=== PATIENT | male | born 1935 | race Caucasian/White ===

== ENCOUNTER → 2023-01-11 13:54 | Outpatient (BNVA) | payer MEDICARE, SELFPAY | PROVIDERS: Family Provider Family Medicine; Visit Provider Nurse Practitioner Family | DX: L57.0 Actinic keratosis (principal); L57.8 Other skin changes due to chronic exposure to nonionizing radiation; L85.3 Xerosis cutis; L81.4 Other melanin hyperpigmentation; D22.5 Melanocytic nevi of trunk; L82.1 Other seborrheic keratosis; Z71.89 Other specified counseling; Z85.828 Personal history of other malignant neoplasm of skin; Z87.891 Personal history of nicotine dependence | CPT/HCPCS: 17000; 17003; 99213 ==

== ENCOUNTER 2023-07-03 15:25 | Emergency (ER) | payer MEDICARE, SELFPAY ==
--- NOTE | 2023-07-03 15:36 | CTR_ITS ---
PROCEDURE INFORMATION: Exam: CT Cervical Spine Without Contrast Exam date and time: 07/03/2023 4:01 PM Age: 88 years old Clinical indication: Injury or trauma; Fall; Blunt trauma TECHNIQUE: Imaging protocol: Computed tomography of the cervical spine without contrast. Radiation optimization: All CT scans at this facility use at least one of these dose optimization techniques: automated exposure control; mA and/or kV adjustment per patient size (includes targeted exams where dose is matched to clinical indication); or iterative reconstruction. REPORTING DATA: Count of CT and Cardiac NM exams in prior 12 months: This patient has received 0 known CTs and 0 known cardiac nuclear medicine studies in the 12 months prior to the current study. COMPARISON: CT head wo con* [id number] 07/03/2023 4:01 PM RADIATION DOSE METRICS: Total DLP (mGy-cm): 262 FINDINGS: Bones/joints: No acute fracture. Normal alignment. No significant disc bulge or herniation. No severe spinal canal stenosis. No significant neural foraminal narrowing. Lungs: Lung apices are normal. Soft tissues: Unremarkable. CT/CT cervical spin wo con* [id number] IMPRESSION: No acute findings.
--- NOTE | 2023-07-03 15:36 | CTR_ITS ---
PROCEDURE INFORMATION: Exam: CT Head Without Contrast Exam date and time: 07/03/2023 4:01 PM Age: 88 years old Clinical indication: Injury or trauma; Fall; Blunt trauma (contusions or hematomas) TECHNIQUE: Imaging protocol: Computed tomography of the head without contrast. Radiation optimization: All CT scans at this facility use at least one of these dose optimization techniques: automated exposure control; mA and/or kV adjustment per patient size (includes targeted exams where dose is matched to clinical indication); or iterative reconstruction. REPORTING DATA: Count of CT and Cardiac NM exams in prior 12 months: This patient has received 0 known CTs and 0 known cardiac nuclear medicine studies in the 12 months prior to the current study. COMPARISON: CT cervical spin wo con* [id number] 07/03/2023 4:01 PM RADIATION DOSE METRICS: Total DLP (mGy-cm): 1188 FINDINGS: Brain: There is an intra-axial mass centered in the right frontal lobe extending across the midline into the left frontal lobe measuring 5.4 x 4.9 x 4.8 cm with surrounding vasogenic edema. This is causing mass effect and indentation of the frontal horns of the lateral ventricles. There is also 6 mm of [id number]-piap midline shift. No hemorrhage. Cerebral ventricles: No ventriculomegaly. Paranasal sinuses: Fluid-filled left maxillary sinus. Mastoid air cells: Visualized mastoid air cells are well aerated. Bones/joints: Unremarkable. No acute fracture. Soft tissues: Unremarkable. 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 If not previously diagnosed, a pre and post-contrast MRI of the brain is recommended for further evaluation.
[2023-07-03 15:40] VITALS: BMI 37.1
[2023-07-03 15:42] VITALS: BP 137/67; PULSE 59; RESP 16; TEMP 36.3; O2SAT 96
--- NOTE | 2023-07-03 16:18 | W.ED.HEATRA ---
HPI - Head Injury General: Chief complaint: Head Injury Stated complaint: Fell, Hit head, neck pain Time Seen by Provider: 07/03/23 16:18 Source: patient Mode of arrival: ambulatory History of Present Illness: 88-year-old male presents emergency room after a fall he stumbled mechanical ground-level fall at home. He did hit the right side of his head in the temporal region has a small abrasion there there is no loss conscious no nausea or vomiting. He has a history of hypertension remote history of prostate cancer was resected in 2001. He recently seen his primary care physician was thought to have a TIA. He is not on any kind of anticoagulants. He has not had any ataxia difficulty walking no visual or speech changes no nausea or vomiting. He generally has been a little bit more unsteady on his feet the last few weeks he had blamed that on the TIA he has been walking with a cane for some time feels little bit more reliant on it recently. He also noticed a little bit of difficulty with incontinence of urine recently. No hematuria MD Complaint: head injury Onset (ago): minute(s) Mechanism of Injury: fall Place: home Loss of Consciousness: no Location of injury: parietal Severity: mild Quality: aching Radiation: none Other Injuries: none Associated symptoms: Deny amnesia, confusion, nausea, neck pain, numbness, syncope, tingling, vertigo, visual changes, vomiting or weakness Review of Systems Const: Denies: fever(s) or chills Card: Denies: syncope Resp: Denies: dyspnea GI: Denies: nausea or vomiting : Denies: dysuria, urinary frequency or urinary urgency Musc: Denies: neck pain Skin/Breast: Denies: rash Neuro: Denies: vertigo or confusion PFSH ED PFSH: Medical History Degenerative arthritis of right knee HTN (hypertension) Social History Alcohol intake: never Substance/Drug Use: never Physical Exam Const: COMMON NORMALS: no acute distress GENERAL APPEARANCE: cooperative and comfortable ORIENTATION/CONSCIOUSNESS: Yes awake, Yes oriented to person, Yes oriented to place and Yes oriented to time HENMT: COMMON NORMALS: normocephalic, atraumatic and hearing grossly normal bilaterally HEAD & SCALP: normocephalic and atraumatic Resp: COMMON NORMALS: normal respiratory effort, No retractions, No use of accessory muscles and clear to auscultation bilaterally AUSCULTATION: clear to auscultation bilaterally Cardio: COMMON NORMALS: regular rate, regular rhythm and No murmurs present (Cardio) RATE: regular rate RHYTHM: regular rhythm GI: COMMON NORMALS: Soft to palpation and No hepatosplenomegaly present AUSCULTATION: Yes normoactive bowel sounds PALPATION: Yes Soft to palpation, No Tenderness to palpation present (GI), No Guarding due to palpation present (GI) and Yes No hepatosplenomegaly present Extremity: COMMON NORMALS: normal to inspection, capillary refill normal, no clubbing, cyanosis or edema, no calf tenderness and no pedal edema Neuro: SENSORIUM/ORIENTATION: Yes oriented to person, Yes oriented to place and Yes oriented to time Skin: COMMON NORMALS: no rashes or lesions noted GENERAL SKIN EXAM: no rashes or lesions noted Course Vital Signs: Vital signs: Vital Signs Temperature 97.4 F L 07/03/23 15:42 Pulse Rate 62 07/03/23 16:21 Respiratory Rate 18 07/03/23 16:21 Blood Pressure 158/77 07/03/23 16:21 Pulse Oximetry 92 07/03/23 16:21 Oxygen Delivery Me thod Room Air 07/03/23 16:21 MDM - Head Injury Medcial Decision Making Patient is a new finding of frontal mass which is likely causing his symptoms. We will start him on dexamethasone orally given initial dose here will discharge home set up outpatient MRI I did contact his primary care doctor to assist with managing follow-up on this. Medical Records I reviewed the patient's medical records. Lab Data I reviewed the patient's lab results. 07/03/23 16:27 07/03/23 16:27 Radiology Impressions Cervical Spine CT 07/03/23 15:36 IMPRESSION: No acute findings. Head CT 07/03/23 15:36 IMPRESSION: Aggressive appearing intra-axial mass centered within the right frontal lobe and crossing the midline into the left frontal lobe measuring 5.4 x 4.9 x 4.8 cm highly suspicious for high-grade glioma or lymphoma. If not previously diagnosed, a pre and post-contrast MRI of the brain is recommended for further evaluation. ADDENDUM: 07/03/23 1645 Findings were discussed with Dr. Alvarado at 07/03/2023 4:43 PM AIRCRAFT INSTRUMENT TESTER. Chest X-Ray 07/03/23 16:19 IMPRESSION: No acute findings. Laboratory Results WBC 10.91 10^3/uL (3.29-11.43) 07/03/23 16: RBC 4.47 10^6/uL (3.85-5.65) 07/03/23 16: Hgb 14.10 g/dL (11.27-16.99) 07/03/23 16: Hct 41.4 % (37-53) 07/03/23 16: MCV 92.6 fl (82-101) 07/03/23 16: MCH 31.5 pg (27-33) 07/03/23 16: MCHC 34.1 g/dL (30-55) 07/03/23 16: RDW 13.4 % (12.1-15.1) 07/03/23 16: Plt Count 235 10^3/cmm (157-399) 07/03/23 16: MPV 10.1 fL (7.4-10.4) 07/03/23 16: Neut % (Auto) 72.1 % 07/03/23 16: Lymph % (Auto) 14.7 % 07/03/23 16: [place] % (Auto) 12.3 % 07/03/23 16: Eos % (Auto) 0.3 % 07/03/23 16: Baso % (Auto) 0.2 % 07/03/23 16: Neut # (Auto) 7.88 10^3/uL (1.8-7.7) H 07/03/23 16:27 Lymph # (Auto) 1.6 10^3/uL (0.8-4.8) 07/03/23 16: [place] # (Auto) 1.3 10^3/uL (0.2-0.9) H 07/03/23 16:27 Eos # (Auto) 0.0 10^3/uL (0.0-0.8) 07/03/23 16: Baso # (Auto) 0.0 10^3/uL (0.0-0.1) 07/03/23 16:27 Nucleated RBC % (auto) 0 % 07/03/23 16:27 Nucleated RBCs # 0.0 /100WBC 07/03/23 16:27 Sodium 136 mmol/L (136-145) 07/03/23 16:27 Potassium 3.5 mmol/L (3.5-5.1) 07/03/23 16:27 Chloride 99 mmol/L (98-107) 07/03/23 16:27 Carbon Dioxide 24 mmol/L (22-29) 07/03/23 16:27 Anion Gap 16.5 (5-19) 07/03/23 16:27 BUN 27 mg/dL (8-23) H 07/03/23 16:27 Creatinine 0.9 mg/dL (0.7-1.2) 07/03/23 16:27 GFR Calculation Not Reportable 07/03/23 16:27 Glucose 110 mg/dL (65-115) 07/03/23 16:27 Calculated Osmolality 288 mOsm/kg (285-295) 07/03/23 16:27 Calcium 9.2 mg/dL (8.5-10.5) 07/03/23 16:27 Total Bilirubin 0.6 mg/dL (0.15-1.2) 07/03/23 16:27 AST 21 U/L (0-40) 07/03/23 16:27 ALT 13 U/L (0-41) 07/03/23 16:27 Alkaline Phosphatase 69 U/L (40-130) 07/03/23 16:27 Total Protein 6.9 g/dL (6.6-8.7) 07/03/23 16:27 Albumin 4.2 g/dL (3.5-5.2) 07/03/23 16:27 Globulin 2.7 g/dL (1.3-4.6) 07/03/23 16:27 All radiology interpretation(s) finalized by discharge Discharge Plan Discharge Patient Disposition: Home Clinical Impression: Frontal mass of brain Condition: Stable Prescriptions: New dexamethasone 4 mg tablet 4 mg PO TID Qty: 90 0RF No Action losartan 50 mg tablet 50 mg PO QDAY amlodipine 10 mg tablet 10 mg PO QDAY Discharge Orders: Discharge ED (Routine); Ordered 07/03/23 Ordered By: Nimesh Alvarado Referrals: Wilber Reeves, [Primary Care Provider] - Discharge Diet: Usual diet Discharge Activity: Resume usual activity Patient Instructions: Opioid Safety, Pain Management Activity Restrictions/Additional Instructions: Thank you for choosing [facility] for your healthcare needs today. Please realize this is an emergency room and that we are providing you with a medical screening exam and this may not be complete and all inclusive of all the testing and or work up that you may need to determine your ailment or severity of your illness. It is very important that you follow up as instructed or that you return to the Emergency Department should you have concerns or if your condition changes or worsens in any way. CT in your head done today showed a frontal brain mass. This will need further evaluation with an MRI. We will set this up for you on an outpatient basis Case management will contact you. After the MRI is completed follow-up with Dr. Reeves for further referral for more work-up and definitive treatment. Coding Level of Care Code ED Icer Machine Operator for Mitch Herman
--- NOTE | 2023-07-03 16:19 | XRR_ITS ---
PROCEDURE INFORMATION: Exam: XR Chest Exam date and time: 07/03/2023 4:43 PM Age: 88 years old Clinical indication: Injury or trauma; Fall; Blunt trauma (contusions or hematomas); Additional info: Dyspnea/cough TECHNIQUE: Imaging protocol: Radiologic exam of the chest. Views: 1 view. COMPARISON: CR XR chest 2V* [id number] 07/26/2018 12:43 PM FINDINGS: Lungs: Calcified granuloma noted in the right upper lung. Linear areas of scarring noted in the right mid lung. No consolidation. Pleural spaces: Unremarkable. No pleural effusion. No pneumothorax. Heart/Mediastinum: Unremarkable. No cardiomegaly. Bones/joints: Unremarkable. XR/XR chest 1V portable [id number] IMPRESSION: No acute findings.
[2023-07-03 16:21] VITALS: BP 158/77; PULSE 62; RESP 18; O2SAT 92
--- NOTE | 2023-07-03 16:32 | ECG_ITS ---
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 Measurements Intervals [place] Rate: 56 P: 56 OR: 173 QRS: 14 QRSD: 141 T: 29 QT: 342 QTc: 332 Interpretive Statements SINUS BRADYCARDIA RIGHT BUNDLE BRANCH BLOCK [120+ ms QRS DURATION, UPRIGHT V1, 40+ ms S IN I/aVL/V4/V5/V6] Compared to ECG 07/26/2018 11:50:04 Right bundle-branch block now present Electronically Signed On 07-05-2023 13:29:41 BRACE MAKER by Siddharth Salas M.D. [id number]
[2023-07-03 16:41] LABS: Basophils % 0.2 %; Eosinophils % 0.3 %; Hematocrit 41.4 % (37-53); Lymphocytes # 1.6 10^3/uL (0.8-4.8); Lymphocytes % 14.7 %; Mean Corpuscular HGB Conc 34.1 g/dL (30-55); Mean Corpuscular Hemoglobin 31.5 pg (27-33); Mean Corpuscular Volume 92.6 fl (82-101); Mean Platelet Volume 10.1 fL (7.4-10.4); Monocytes # 1.3 10^3/uL (0.2-0.9); Monocytes % 12.3 %; Neutrophils # 7.88 10^3/uL (1.8-7.7); Neutrophils % 72.1 %; Nucleated Red Blood Cells % 0 %; Platelet Count 235 10^3/cmm (157-399); Red Blood Count 4.47 10^6/uL (3.85-5.65); Red Cell Distribution Width 13.4 % (12.1-15.1); White Blood Count 10.91 10^3/uL (3.29-11.43)
[2023-07-03 16:51] LABS: Alanine Aminotransferase 13 U/L (0-41); Albumin Level 4.2 g/dL (3.5-5.2); Alkaline Phosphatase 69 U/L (40-130); Anion Gap 16.5 (5-19); Aspartate Amino Transferase 21 U/L (0-40); Blood Urea Nitrogen 27 mg/dL (8-23); Calcium 9.2 mg/dL (8.5-10.5); Carbon Dioxide 24 mmol/L (22-29); Chloride 99 mmol/L (98-107); Globulin 2.7 g/dL (1.3-4.6); Glucose 110 mg/dL (65-115); Osmolality Calculated 288 mOsm/kg (285-295); Potassium 3.5 mmol/L (3.5-5.1); Sodium 136 mmol/L (136-145); Total Bilirubin 0.6 mg/dL (0.15-1.2); Total Protein 6.9 g/dL (6.6-8.7)
[2023-07-03] MEDS: dexamethasone 10 mg/mL INJ IM (17:37)
--- NOTE | 2023-07-09 11:30 | DCPLANNER ---
Faxed MRI order to centralized scheduling
== END 2023-07-03 17:37 | disposition home or self-care (01) ==
PROVIDERS: Emergency Provider Family Medicine; PCP Electrodiagnostic Medicine
DX: G93.9 Disorder of brain, unspecified (principal); I10 Essential (primary) hypertension
CPT/HCPCS: 70450; 71045; 72125; 80053; 85025; 93005; 93010; 96372; 99285; J1100

== ENCOUNTER 2023-07-11 16:18 | Outpatient (CLI) | payer MEDICARE, SELFPAY ==
--- NOTE | 2023-07-11 16:35 | MR_ITS ---
WS: [id number] MRI BRAIN WITH AND WITHOUT CONTRAST HISTORY: FRONTAL BRAIN MASS COMPARISON: CT head 07/03/2023 TECHNIQUE: Multiplanar imaging performed through the brain with MultiHance ml's IV. No acute infarct. There is a large intra-axial soft tissue mass centered in the anterior RIGHT fronta l lobe with extensive surrounding vasogenic edema and loss of the oh-white matter. There is periphe ral and nodularity enhancement of this mass. Mass measures 4.9 x 5.8 x 4.9 cm and does extend across the anterior interhemispheric falx to the LEFT frontal lobe. There is mass effect and displacement of the anterior horn RIGHT lateral ventricle. There may be invasion into the corpus callosum. Extensive vasogenic edema extends across the midline to the LEFT and involves the corpus callosum. There are a few areas of low signal suggesting may be some hemorrhagic component present. No pituitary abnormality. Atrophy of the posterior fossa. No mass or abnormal enhancement. No infarct. Paranasal sinuses: Moderate mucoperiosteal thickening in the maxillary sinuses. No air-fluid levels. Mastoid air cells: Normal. Calvarium and scalp: Normal. IMPRESSION: 1. Large mass with peripheral enhancement centered in the RIGHT frontal lobe with extension across t he the interhemispheric falx to the LEFT and encroachment upon the corpus callosum. Large amount of v asogenic edema. 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 Lymphoma within the differential but thought less likely. 2. No additional areas of abnormal enhancement.
[2023-07-11] MEDS: gadobenate dimeglumine 20 mL vial IV (17:25)
== END 2023-07-11 16:19 | disposition home or self-care (01) ==
LOC: RAD 16:18
PROVIDERS: PCP Electrodiagnostic Medicine; Visit Provider Family Medicine
DX: G93.9 Disorder of brain, unspecified (principal)
CPT/HCPCS: 70553; A9577

== ENCOUNTER 2023-07-18 15:03 | Emergency (ER) | payer MEDICARE, SELFPAY ==
[2023-07-18 15:17] VITALS: BP 100/52; PULSE 49; RESP 18; TEMP 37.2; O2SAT 98; BMI 33.5
--- NOTE | 2023-07-18 15:26 | ECG_ITS ---
[facility] Test Date: 2023-07-18 Pat Name: Chet Cedeño Department: Room: Gender: Male Saw Feeder: : 1935 Requested By: Myles Pastor Order Number: [id number] Noelle MD: Reed Wilkins M.D. Measurements Intervals [place] Rate: 54 P: 52 [place]: 159 QRS: 23 QRSD: 113 T: 45 QT: 377 QTc: 360 Interpretive Statements SINUS BRADYCARDIA WITH FREQUENT VENTRICULAR PREMATURE COMPLEXES MODERATE INTRAVENTRICULAR CONDUCTION DELAY [110+ ms QRS DURATION] NONSPECIFIC T-WAVE ABNORMALITY Compared to ECG 07/03/2023 16:32:22 Ventricular premature complex(es) now present Intraventricular conduction delay now present T-wave abnormality now present Right bundle-branch block no longer present Electronically Signed On 07-18-2023 16:41:05 GLOBAL REGULATORY LEAD by Reed Wilkins M.D. [id number] f
--- NOTE | 2023-07-18 15:39 | XR_ITS ---
WS: [id number] Portable AP upright chest, 07/18/2023 Clinical Data: cp Comparison: Portable chest, 07/03/2023 Findings: No nodules, masses or effusions are seen. The heart is normal. The pulmonary vascularity is not increased. No pneumonia or pneumothorax is seen. The aortic arch and descending thoracic aorta s how calcification and tortuosity. Impression: Atherosclerosis.
--- NOTE | 2023-07-18 15:47 | ED_ITS ---
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 Associated symptoms: Deny chest pain, dyspnea, headache(s), nausea, rash or vomiting Review of Systems 2 Const: Denies: fever(s), chills, body aches or change in appetite Eyes: Denies: blurry vision or eye discomfort ENMT: Denies: throat pain or dental pain Card: Denies: chest pain Resp: Denies: dyspnea GI: Denies: abdominal pain, nausea, vomiting or diarrhea Musc: Denies: neck pain or back pain Skin/Breast: Denies: rash Neuro: Denies: headache(s) PFSH ED 2 PFSH: Medical History HTN (hypertension) Degenerative arthritis of right knee Social History Alcohol intake: never Substance/Drug Use: never Physical Exam 2 Const: COMMON NORMALS: patient oriented x3 HENMT: COMMON NORMALS: normocephalic and atraumatic HEAD & SCALP: n ormocephalic and atraumatic Eye: COMMON NORMALS: Equal, round and reactive pupils present and EOMs intact bilaterally PUPIL: Yes Equal, round and reactive pupils present Neck/C-Spine: COMMON NORMALS: full ROM and supple Chest: COMMONS NORMALS: normal inspection of the chest and normal palpation of entire chest wall Resp: COMMON NORMALS: normal respiratory effort, No retractions, No use of accessory muscles and clear to auscultation bilaterally AUSCULTATION: clear to auscultation bilaterally Cardio: COMMON NORMALS: No murmurs present (Cardio) RATE: bradycardic GI: COMMON NORMALS: Normal to inspection, nondistended, normoactive bowel sounds present, Soft to palpation, non-tender and no masses PALPATION: Yes Soft to palpation Extremity: COMMON NORMALS: normal to inspection and full ROM Neuro: COMMON NORMALS: patient oriented x3, moves all extremities and no focal motor deficits Psych: COMMON NORMALS: mental status grossly normal, Normal thought process present and cooperative THOUGHT PROCESS: Normal thought process present Skin: COMMON NORMALS: no rashes or lesions noted and no wounds GENERAL SKIN EXAM: no rashes or lesions noted Course 2 Vital Signs: Vital signs: Vital Signs Temperature 99 F 07/18/23 15:17 Pulse Rate 51 L 07/18/23 16:00 Respiratory Rate 15 07/18/23 16:00 Blood Pressure 108/50 07/18/23 16:00 Pulse Oximetry 98 07/18/23 16:00 Oxygen Delivery Me thod Room Air 07/18/23 15:17 MDM - General Adult Medical Decision Making Patient presents with bradycardia his heart rate is consistently been in the 40s and 50s here it is a sinus bradycardia he has been asymptomatic does not need emergent pacemaker did go over his MRI 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 Kerr patient is to see him either tomorrow or Sunday patient is return if worsening he is stable for discharge. He has had no chest pain no signs of acute coronary syndrome. Medical Records I reviewed the patient's medical records. Lab Data I reviewed the patient's lab results. 07/18/23 15:51 07/18/23 15:51 Laboratory Results WBC 15.87 10^3/uL (3.29-11.43) H 07/18/23 15:51 RBC 4.49 10^6/uL (3.85-5.65) 07/18/23 15:51 Hgb 14.20 g/dL (11.27-16.99) 07/18/23 15:51 Hct 41.6 % (37-53) 07/18/23 15:51 MCV 92.7 fl (82-101) 07/18/23 15:51 MCH 31.6 pg (27-33) 07/18/23 15:51 MCHC 34.1 g/dL (30-55) 07/18/23 15:51 RDW 14.2 % (12.1-15.1) 07/18/23 15:51 Plt Count 197 10^3/cmm (157-399) 07/18/23 15:51 MPV 9.7 fL (7.4-10.4) 07/18/23 15:51 Neut % (Auto) 89.0 % 07/18/23 15:51 Lymph % (Auto) 4.0 % 07/18/23 15:51 [place] % (Auto) 6.4 % 07/18/23 15:51 Eos % (Auto) 0.0 % 07/18/23 15:51 Baso % (Auto) 0.1 % 07/18/23 15:51 Neut # (Auto) 14.11 10^3/uL (1.8-7.7) H 07/18/23 15:51 Lymph # (Auto) 0.6 10^3/uL (0.8-4.8) L 07/18/23 15:51 [place] # (Auto) 1.0 10^3/uL (0.2-0.9) H 07/18/23 15:51 Eos # (Auto) 0.0 10^3/uL (0.0-0.8) 07/18/23 15:51 Baso # (Auto) 0.0 10^3/uL (0.0-0.1) 07/18/23 15:51 Nucleated RBC % (auto) 0 % 07/18/23 15:51 Nucleated RBCs # 0.0 /100WBC 07/18/23 15:51 Sodium 134 mmol/L (136-145) L 07/18/23 15:51 Potassium 3.9 mmol/L (3.5-5.1) 07/18/23 15:51 Chloride 99 mmol/L (98-107) 07/18/23 15:51 Carbon Dioxide 24 mmol/L (22-29) 07/18/23 15:51 Anion Gap 14.9 (5-19) 07/18/23 15:51 BUN 44 mg/dL (8-23) H 07/18/23 15:51 Creatinine 1.1 mg/dL (0.7-1.2) 07/18/23 15:51 GFR Calculation Not Reportable 07/18/23 15:51 Glucose 101 mg/dL (65-115) 07/18/23 15:51 Calculated Osmolality 289 mOsm/kg (285-295) 07/18/23 15:51 Calcium 8.6 mg/dL (8.5-10.5) 07/18/23 15:51 Total Bilirubin 0.6 mg/dL (0.15-1.2) 07/18/23 15:51 AST 14 U/L (0-40) 07/18/23 15:51 ALT 21 U/L (0-41) 07/18/23 15:51 Alkaline Phosphatase 50 U/L (40-130) 07/18/23 15:51 Troponin T Baseline 25 ng/L (0-15) H 07/18/23 15:51 Total Protein 5.3 g/dL (6.6-8.7) L 07/18/23 15:51 Albumin 3.4 g/dL (3.5-5.2) L 07/18/23 15:51 Globulin 1.9 g/dL (1.3-4.6) 07/18/23 15:51 All radiology interpretation(s) finalized by discharge Discharge Plan Discharge Patient Disposition: Home Clinical Impression: Bradycardia Condition: Stable Prescriptions: No Action losartan 50 mg tablet 50 mg PO QDAY amlodipine 10 mg tablet 10 mg PO QDAY dexamethasone 4 mg tablet 4 mg PO TID Qty: 90 0RF Discharge Orders: Discharge ED (Routine); Ordered 07/18/23 Ordered By: Myles Pastor Referrals: Lavon Kerr MD [Hospitalist] - 1-3 days Wilber Reeves DO [Primary Care Provider] - Discharge Diet: Advance as tolerated Discharge Activity: Resume usual activity Patient Instructions: Bradycardia (ED) Coding Level of Care Code ED Domestic Freight Forwarder for Valeriog Batsheva
--- NOTE | 2023-07-18 15:59 | ECG_ITS ---
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 Measurements Intervals [place] Rate: 50 P: 60 [place]: 165 QRS: 19 QRSD: 102 T: 88 QT: 455 QTc: 418 Interpretive Statements SINUS BRADYCARDIA WITH OCCASIONAL VENTRICULAR PREMATURE COMPLEXES NONSPECIFIC T-WAVE ABNORMALITY Compared to ECG 07/03/2023 16:32:22 Ventricular premature complex(es) now present T-wave abnormality now present Right bundle-branch block no longer present Electronically Signed On 07-18-2023 16:40:42 ORTHOTIC FITTER by Reed Wilkins M.D. [email or web address] [email or web address] choice medical center of smith countyFonohiohealth doctors hospital.[employer]/store/OM/[id number]
[2023-07-18 16:00] VITALS: BP 108/50; PULSE 51; RESP 15; O2SAT 98
[2023-07-18 16:01] LABS: Basophils % 0.1 %; Hematocrit 41.6 % (37-53); Lymphocytes # 0.6 10^3/uL (0.8-4.8); Mean Corpuscular HGB Conc 34.1 g/dL (30-55); Mean Corpuscular Hemoglobin 31.6 pg (27-33); Mean Corpuscular Volume 92.7 fl (82-101); Mean Platelet Volume 9.7 fL (7.4-10.4); Monocytes % 6.4 %; Neutrophils # 14.11 10^3/uL (1.8-7.7); Nucleated Red Blood Cells % 0 %; Platelet Count 197 10^3/cmm (157-399); Red Blood Count 4.49 10^6/uL (3.85-5.65); Red Cell Distribution Width 14.2 % (12.1-15.1); White Blood Count 15.87 10^3/uL (3.29-11.43)
[2023-07-18 16:22] LABS: Alanine Aminotransferase 21 U/L (0-41); Albumin Level 3.4 g/dL (3.5-5.2); Alkaline Phosphatase 50 U/L (40-130); Anion Gap 14.9 (5-19); Aspartate Amino Transferase 14 U/L (0-40); Blood Urea Nitrogen 44 mg/dL (8-23); Calcium 8.6 mg/dL (8.5-10.5); Carbon Dioxide 24 mmol/L (22-29); Chloride 99 mmol/L (98-107); Globulin 1.9 g/dL (1.3-4.6); Glucose 101 mg/dL (65-115); Osmolality Calculated 289 mOsm/kg (285-295); Potassium 3.9 mmol/L (3.5-5.1); Sodium 134 mmol/L (136-145); Total Bilirubin 0.6 mg/dL (0.15-1.2); Total Protein 5.3 g/dL (6.6-8.7)
[2023-07-18 16:23] LABS: Troponin(5th) Baseline 25 ng/L (0-15)
[2023-07-18 17:07] VITALS: BP 120/54; PULSE 46; O2SAT 96
--- NOTE | 2023-07-18 17:27 | DCPLANNER ---
Sent Message to oncology For appt for tomorrow or Sunday-
--- NOTE | 2023-07-19 07:41 | DCPLANNER ---
I resent a note to oncology on 07/19/23 at 0780
--- NOTE | 2023-07-19 08:24 | DCPLANNER ---
I spoke with Krista at oncology and she spoke with Dr. Kerr about this patient for a follow up appointment. Dr. Krer will be seeing this patient on 07/20/23.
== END 2023-07-18 17:09 | disposition home or self-care (01) ==
PROVIDERS: Emergency Provider Emergency Medicine; PCP Electrodiagnostic Medicine
DX: R00.1 Bradycardia, unspecified (principal); I10 Essential (primary) hypertension
CPT/HCPCS: 36415; 71045; 80053; 84484; 85025; 93005; 99285

== ENCOUNTER 2023-07-20 08:42 | Oncology outpatient (recurring) (ONCR) | payer MEDICARE, SELFPAY | END 2023-08-12 23:59 | disposition home or self-care (01) | LOC: ONCMED 08:42 | PROVIDERS: PCP Electrodiagnostic Medicine; Visit Provider Internal Medicine Medical Oncology | DX: C71.1 Malignant neoplasm of frontal lobe (principal); G93.89 Other specified disorders of brain; Z79.899 Other long term (current) drug therapy | CPT/HCPCS: 99215 ==